=== PATIENT | male | born 1995 | race Caucasian/White ===

== ENCOUNTER 2024-11-23 20:12 | Emergency (ER) | payer MEDICAID, SELFPAY ==
[2024-11-23 20:12] VITALS: BMI 23.0
[2024-11-23 21:09] VITALS: BP 130/84; PULSE 93; RESP 16; TEMP 36.8; O2SAT 98
--- NOTE | 2024-11-23 21:16 | PD.EDSKIN ---
ED Skin Abcess FB-RME/HPI General Chief complaint: Skin/Abscess/Foreign Body Stated complaint: LUMP BEHIND LEFT EAR Time Seen by Provider: 11/23/24 21:03 Arrival date/time: 11/23/24 20:12 RME / HPI RME / HPI narrative: 29-year-old male patient came in for evaluation regarding swelling post auricular area. Has been ongoing for the last 3 days. Severity of symptoms moderate. Patient denies any fever denies any other complaints no medications taken prior to ER visit. Related Data Home Medications ?Medication ?Instructions ?Recorded ?Confirmed insulin lispro 100 unit/mL 10 unit subcut AC #0 vials 12/23/01/01/22 subcutaneous solution (Humalog U-100 Insulin) insulin glargine 100 unit/mL (3 60 unit subcut HS 01/01/22 01/01/22 mL) subcutaneous pen (Lantus Solostar U-100 Insulin) pen needle, diabetic 31 gauge x 01/01/22 01/01/22/ (BD Ultra-Fine Mini Pen Needle) Previous Rx's ?Medication ?Instructions ?Recorded lancets 30 gauge #200 ea 01/01/22 ondansetron HCl 4 mg tablet 4 mg PO QID PRN nausea and 01/01/22 vomiting #20 tabs ibuprofen 600 mg tablet 600 mg PO Q8H PRN pain #20 tabs 11/23/24 sulfamethoxazole 800 1 tab PO BID #20 tabs 11/23/24 mg-trimethoprim 160 mg tablet (Bactrim DS) Allergies Allergy/AdvReac Type Severity Reaction Status Date / Time latex Allergy Severe Hives Verified 01/01/22 07:39 Review of Systems Review of Systems Narrative Review of Systems: Review of system reviewed and within normal limits except mentioned in HPI ED Exam Narrative Physical exam: VITAL SIGNS: Reviewed. GENERAL APPEARANCE: Alert and interactive, follows commands, no acute distress, HEAD AND FACE: Non-traumatic. ENT: PERRL, pink conjunctivitis, eyelid no trauma, Mucous membrane moist. NECK: Supple, nontender, no nuchal rigidity.+ 1 x 1 cm swelling, redness, left postauricular area MUSCULOSKELETAL: low back nontender, full range of motion. EXTREMITIES: Nontender, full range of motion. SKIN: Color pink, dry, no rash, no lacerations, no abrasions, no contusions. LYMPHATICS: Deferred. Course Quality Measures none Orders Category Date Time Status Lidocaine 1% Pf 5 ml [Xylocaine 1% Pf 5 ml] Med 11/23/24 21:15 Discontinued 10 ml INFL X1 ONE cephALEXin [Keflex] Med 11/23/24 21:18 Discontinued 500 mg PO X1 ONE Vital Signs Vital signs: Vital Signs Temperature 98.3 F 11/23/24 21:09 Pulse Rate 93 11/23/24 21:09 Respiratory Rate 16 11/23/24 21:09 Blood Pressure 130/84 11/23/24 21:09 Pulse Oximetry (%) 98 11/23/24 21:09 Oxygen Delivery Method Room Air 11/23/24 21:09 Procedures -ED Abscess I/D Site: other (Left left postauricular area) Sedation/analgesia: none Local Anesthetic: lidocaine 1% Amount of anesthesia used (mL): 3 Technique: incised with #11 blade Amount of fluid expressed (mL): 1 Irrigation: Yes Packing used?: none Complications: other (None) Skin / Abscess / Foreign Body MDM Narrative MDM Narrative:: 29-year-old male patient came in for evaluation regarding swelling post auricular area. Has been ongoing for the last 3 days. Severity of symptoms moderate. Patient denies any fever denies any other complaints no medications taken prior to ER visit. Patient received Keflex in the emergency room Incision and drainage was done by me see procedure notes Patient tolerated the procedure well Patient data External records reviewed:: None Clinical information provided by:: patient Social determinants that could affect healthcare access:: none Patient has the following chronic illnesses:: Diabetes mellitus How is presenting disease/condition affected by chronic disease/condition?: uneffected by Evaluation data The following diagnostics were reviewed and interpreted by me:: other (specify) (none) Lab and/or radiology exams considered but not ordered:: None Interpretation Summary: None Medications / Prescriptions Medications or Prescriptions considered but not ordered:: None Medication administrations:: Medication Administration History Discontinued Medications Cephalexin HCl (Cephalexin 250 Mg Capsule) 500 mg PO X1 ONE Stop: 11/23/24 21:19 Last Admin: 11/23/24 21:55 Dose: 500 mg Documented By: Lidocaine HCl (Lidocaine Inj Pf 1% 5 Ml Vial) 10 ml INFL X1 ONE Stop: 11/23/24 21:16 Last Admin: 11/23/24 21:56 Dose: 10 ml Documented By: Keflex Consultations Consultation(s) initiated? (list below): No Diagnosis Skin/Abscess Differential Diagnosis: abscess of skin or subcutaneous tissue and cellulitis Most likely diagnosis given after review of the tests above:: Postauricular abscess Admission Indicated Admission indicated?: not indicated Explain why admission is indicated or not indicated:: Stable Admission Request Was there a request for admission?: No Disposition Plan Disposition Plan: Discharge Discharge Attestation Discharge Attestation: The patient and all family members were given an opportunity to ask questions and understood the discharge instructions. Discharge instructions specifically effects, indications for sooner follow up or return to the emergency department, and the expected course of current diagnosis. Patient condition: Stable Discharge Plan Plan Patient Disposition: HOME (Self Care) Disposition Comment: stable Prescriptions/Referrals Prescriptions/Med Rec: New sulfamethoxazole-trimethoprim [Bactrim DS] 800-160 mg tablet 1 tab PO BID Qty: 20 0RF ibuprofen 600 mg tablet 600 mg PO Q8H PRN (Reason: pain) Qty: 20 0RF No Action insulin lispro [Humalog U-100 Insulin] 100 U/ML solution 10 unit Sub-Q AC Qty: 0 Lantus Solostar U-100 Insulin 100 unit/mL (3 mL) Insulin Pen 60 unit SUBCUT HS (DME) lancets 30 gauge misc See Rx Instructions .Route Qty: 200 0RF Rx Instructions: As directed (DME) pen needle, diabetic [BD Ultra-Fine Mini Pen Needle] 31 gauge x 3/16 needle ondansetron HCl 4 mg tablet 4 mg PO QID PRN (Reason: nausea and vomiting) Qty: 20 0RF Referrals: Regan Sánchez MD [Primary Care Provider] - In 1 week Problem List Clinical Impression: Abscess, postauricular Patient/Caregiver Discharge Instructions Discharge Activity: activity as tolerated Education Materials: ED Abscess, Incision And Drainage Additional Instructions: Thank you for the opportunity for serving you today. You are stable for discharged . You are advised to: Follow-up with your PCP in 1 to 2 days Return to ED for worsening of symptoms Increase oral fluids Take medication as prescribed Daily dressing with Neosporin as needed Print Language: Norwegian Stand Alone Forms: Jennifer Award Info., Patient Portal Info Letter ANAT/MARK Supervising Physician ANAT/MARK Supervising Physician: MD Jonathan
[2024-11-23] MEDS: cephALEXin 250 MG CAPSULE 500 MG PO (21:55)
[2024-11-23] MEDS: LIDOCAINE INJ PF 1% 5 ML VIAL 10 ML INFL (21:56)
== END 2024-11-23 23:39 | disposition home or self-care (01) ==
PROVIDERS: Emergency Provider Emergency Medicine; PCP Family Medicine
DX: H60.02 Abscess of left external ear (principal)
CPT/HCPCS: 69000; 99283; J3490; A9270